=== PATIENT | female | born 1995 | race Two or more races ===

== ENCOUNTER 2023-07-30 06:45 | Emergency (ER) | payer OTHER ==
[~2023-07-30] VITALS: Ht 337.8 cm; Wt 81.6 kg
== END 2023-07-30 11:18 ==
LOC: ER 06:46
DX: M25.512 Pain in left shoulder (principal); M62.838 Other muscle spasm; T14.90XA Injury, unspecified, initial encounter; Z88.6 Allergy status to analgesic agent; Z91.013 Allergy to seafood

== ENCOUNTER 2024-02-07 21:55 | Emergency (ER) | payer OTHER ==
[~2024-02-07] VITALS: Ht 170.2 cm; Wt 76.2 kg
[2024-02-07 23:29] LABS: HEMATOCRIT 40.7 % (36.0-45.00); HEMOGLOBIN 13.7 g/dL (12.0-15.00); MEAN CELL VOLUME 89.7 fL (80.00-100.00); MEAN CORPUSCULAR HEMOGLOBIN 30.2 pg (27.00-32.0); MEAN CORPUSCULAR HGB CONC 33.7 g/dl (32.0-36.0); PLATELET COUNT 262 K/uL (150-450); RED BLOOD COUNT 4.54 M/uL (4.00-6.00); RED CELL DISTRIBUTION WIDTH 14.4 % (11.5-14.5)
[2024-02-07 23:56] LABS: CALCIUM 9.7 mg/dL (8.5-10.1); CREATININE SERUM 0.78 mg/dL (0.55-1.02); GFR 88.59; POTASSIUM 4.38 mEq/L (3.5-5.1)
[2024-02-08] MEDS ORDERED: MECLIZINE HCL 25 MG TABLET PO ONE ×2 (02:35→02:45)
[2024-02-08] MEDS ORDERED: ACETAMINOPHEN 500 MG GEL..CAP PO ONE ×2 (02:35→02:45)
[2024-02-08] MEDS ORDERED: ANTIVERT25 M2 PO (06:27)
[2024-02-08] MEDS ORDERED: ESGIC CAPSULE1 EACH PO (06:27)
== END 2024-02-08 06:32 ==
LOC: ER 21:57
PROVIDERS: Emergency Medicine
DX: R51.9 Headache, unspecified (principal); R42 Dizziness and giddiness; Z88.6 Allergy status to analgesic agent; Z91.013 Allergy to seafood

== ENCOUNTER 2024-06-26 09:37 | Emergency (ER) | payer OTHER ==
[~2024-06-26] VITALS: Ht 170.2 cm; Wt 73.5 kg
[~2024-06-26 09:37] MED LIST: ANTIVERT25 M2 PO; ESGIC CAPSULE1 EACH PO
[2024-06-26] MEDS ORDERED: BUDESONIDE 0.5 MG/2 ML AMPUL.NEB IH STA (10:49)
[2024-06-26] MEDS ORDERED: LEVALBUTEROL HCL 1.25 MG/3 ML SOLUTION IH STA (10:49)
[2024-06-26] MEDS ORDERED: HYDROCODONE/CHLORPHEN P-STIREX 5 ML ML PO STA (10:50)
[2024-06-26 11:17] LABS: HEMOGLOBIN 13.2 g/dL (12.0-15.00); MEAN CELL VOLUME 89.2 fL (80.00-100.00); MEAN CORPUSCULAR HEMOGLOBIN 30.3 pg (27.00-32.0); MEAN CORPUSCULAR HGB CONC 33.9 g/dl (32.0-36.0); PLATELET COUNT 255 K/uL (150-450); RED BLOOD COUNT 4.37 M/uL (4.00-6.00); RED CELL DISTRIBUTION WIDTH 13.7 % (11.5-14.5)
== END 2024-06-26 13:08 | disposition home or self-care (01) ==
LOC: ER 09:39
PROVIDERS: General Practice
DX: J10.1 Influenza due to other identified influenza virus with other respiratory manifestations (principal); Z91.013 Allergy to seafood; Z88.6 Allergy status to analgesic agent; J45.909 Unspecified asthma, uncomplicated; Z20.822 Contact with and (suspected) exposure to COVID-19